=== PATIENT | male | born 1965 | race Caucasian/White ===

== ENCOUNTER 2019-11-03 14:40 | Emergency (ER) | payer BC ==
[2019-11-03] MEDS ORDERED: Lidocaine 1% 10 ML MDV INJECT ONE (14:58)
[2019-11-03] MEDS ORDERED: Diphtheria,Pertussis(Acell),Tetanus Vaccine 0.5 ML Syringe IM ONE (14:58)
--- NOTE | 2019-11-03 15:53 | EDM.PDOC ---
ED HPI GENERAL MEDICAL PROBLEM - General Chief Complaint: Laceration Stated Complaint: RT PINKY LAC Time Seen by Provider: 11/03/19 14:44 Source of Information: Reports: Patient History Limitations: Reports: No Limitations - History of Present Illness INITIAL COMMENTS - FREE TEXT/NARRATIVE: Patient is a 53-year-old male who presents to the ER with complaints of a laceration to his right pinky finger. He states he was reaching in a box in his garage and his finger got hooked on a piece of sheet metal which cut his finger. He cleaned the laceration well at home prior to coming here. He is unsure when his last tetanus vaccination was. Right Finger-Little Pain Score (Numeric/FACES): 10 - Related Data Allergies Allergy/AdvReac Type Severity Reaction Status Date / Time No Known Allergies Allergy Verified 11/03/19 14:59 Home Meds: Home Meds . [No Known Home Meds] 11/03/19 [History] Past Medical History - Past Health History Medical/Surgical History: Denies Medical/Surgical History Social & Family History - Family History Family Medical History: Noncontributory - Tobacco Use Smoking Status *Q: Never Smoker Second Hand Smoke Exposure: No - Caffeine Use Caffeine Use: Reports: Coffee - Recreational Drug Use Recreational Drug Use: No ED ROS GENERAL - Review of Systems Review Of Systems: Comprehensive ROS is negative, except as noted in HPI. ED EXAM, SKIN/RASH Exam: See Below Exam Limited By: No Limitations General Appearance: Alert, WD/WN, Mild Distress Respiratory/Chest: No Respiratory Distress, Lungs Clear, Normal Breath Sounds, No Accessory Muscle Use, Chest Non-Tender Cardiovascular: Normal Peripheral Pulses, Regular Rate, Rhythm, No Edema, No Gallop, No JVD, No Murmur, No Rub Neurological: Alert, Oriented Psychiatric: Normal Affect, Normal Mood Skin: Other (3 cm L-shaped laceration to the distal ventral portion of the right fifth finger. Patient has full strength against resistance.) ED SKIN PROCEDURES - Laceration/Wound Repair Right Distal Ventral Digit - 5th (Baby) Appearance: Subcutaneous Distal NVT: Neuro & Vascular Intact Anesthetic Type: Local Local Anesthesia - Lidocaine (Xylocaine): 1% Plain Local Anesthetic Volume: 3cc Skin Prep: Chlorhexidine (Hibiciens), Saline Exploration/Debridement/Repair: Wound Explored, No Foreign Material Found Closed with: Sutures Lac/Wound length In cm: 3 (L-shaped) Suture Size: 4-0 # of Sutures: 8 Suture Type: Nylon Sterile Dressing Applied: Provider Tetanus Status Addressed: Yes Complications: Yes Progress/Comments: Edges approximated well. Patient had full strength against resistance. Gauze tubular dressing applied. Recommend he keep this in place for 24 hours and then remove. Recommend wash twice daily with normal soap and water. Sutures out in 7 days. Course - Vital Signs Last Recorded V/S: Last Vital Signs Temp 98 F 11/03/19 14:55 Pulse 73 11/03/19 14:55 Resp 20 11/03/19 14:55 BP 134/78 11/03/19 14:55 Pulse Ox 97 11/03/19 14:55 - Orders/Labs/Meds Orders: Active Orders 24 hr Category Date Time Status Vaccines to be Administered [RC] PER UNIT ROUTINE Care 11/03/19 14:58 Active Meds: Medications Discontinued Medications Generic Name Dose Route Start Last Admin Trade Name Freq PRN Reason Stop Dose Admin Diphtheria/Tetanus/Acell Pertussis 0.5 ml 11/03/19 14:58 11/03/19 15:50 Adacel IM 11/03/19 14:59 0.5 ml .ONCE ONE Administration Lidocaine HCl 10 ml 11/03/19 14:58 11/03/19 15:51 Xylocaine 1% INJECT 11/03/19 14:59 10 ml ONETIME ONE Administration Departure - Departure Time of Disposition: 15:52 Disposition: Home, Self-Care 01 Condition: Fair Clinical Impression: Laceration - Discharge Information *PRESCRIPTION DRUG MONITORING PROGRAM REVIEWED*: No *COPY OF PRESCRIPTION DRUG MONITORING REPORT IN PATIENT RENARD: No Instructions: Laceration Care, Adult, [id number] Referrals: PCP,None [Primary Care Provider] - Forms: ED Department Discharge Additional Instructions: You were seen in the emergency department today for a laceration to your right pinky finger. The wound was cleansed and closed with 8 sutures. The wound should be kept clean and dry. You may wash it twice a day with normal soap and water. You may shower as normal. Do not submerge the wound in water. There is a chance it could become contaminated, recommend that you cover it. Otherwise it can be left open to air. Watch for signs of infection including increased redness, swelling, or purulent drainage. If this should occur you should be seen in the clinic or return to the ER. Your tetanus vaccination was updated today so are up-to-date for the next 10 years. Sutures should stay in place for 1 week. Recommend that they be removed next Sunday. You may call the medical office clinic to schedule a nurse visit to have them removed. Phone number is [phone]. Return to ER as needed. Sepsis Event Note - Evaluation Sepsis Screening Result: No Definite Risk - Focused Exam Vital Signs: Vital Signs Temp Pulse Resp BP Pulse Ox 11/03/19 14:55 98 F 73 20 134/78 97 Date Exam was Performed: 11/03/19 Time Exam was Performed: 18:18 - My Orders Last 24 Hours: My Active Orders 11/03/19 14:58 Vaccines to be Administered [RC] PER UNIT ROUTINE - Assessment/Plan Last 24 Hours: My Active Orders 11/03/19 14:58 Vaccines to be Administered [RC] PER UNIT ROUTINE
== END 2019-11-03 16:01 | disposition home or self-care (01) ==
LOC: JD.ED 14:40
DX: S61.216A Laceration without foreign body of right little finger without damage to nail, initial encounter (principal); Z23 Encounter for immunization; W26.8XXA Contact with other sharp object(s), not elsewhere classified, initial encounter
CPT/HCPCS: 12002; 90471; 90715; 99282; J2001

== ENCOUNTER 2021-05-18 12:40 | Emergency (ER) | payer SELFPAY ==
[2021-05-18] MEDS ORDERED: Acetaminophen 325 MG Tab PO ONE (14:32)
--- NOTE | 2021-05-18 15:03 | CR ---
Chest: Frontal view of the chest was obtained. Comparison: No prior chest imaging is available. Patchy areas of increased density are seen within both sides of the chest. Heart size and mediastinum are normal. Bony structures show nothing acute. Impression: 1. Patchy areas of increased density within the chest compatible with COVID pneumonia. Diagnostic code #3
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
[2021-05-18] MEDS ORDERED: Albuterol 6.7 GM Inhaler INH PRN (16:30)
[2021-05-18] MEDS ORDERED: Ketorolac 60 MG/2 ML SDV IM ONE (16:30)
== END 2021-05-18 16:48 | disposition home or self-care (01) ==
LOC: JD.ED 12:40
DX: U07.1 COVID-19 (principal)
CPT/HCPCS: 36415; 71045; 80053; 83880; 84484; 85025; 85379; 86140; 93005; 94640; 96372; 99285; A9270; J1885